=== PATIENT | male | born 1960 | race Caucasian/White ===

== ENCOUNTER 2018-01-21 15:53 | Outpatient (CLI) | payer BC ==
--- NOTE | 2018-01-21 19:00 | MRI ---
MRI LEFT ELBOW WITHOUT CONTRAST 01/21/18 HISTORY: Elbow pain for five months. Plays tennis. COMPARISON: None. FINDINGS: TENDONS: There is low grade thickening of both the common extensor and common flexor tendons without significa nt tearing of the common flexor tendon, although there is moderate grade interstitial tearing of the common extensor tendon. The biceps tendon and brachialis tendons are intact. MUSCLES: There is some low grade edema of the brachialis distal myotendinous junction suggesting a low grade s train. No bicipital radial bursitis. The triceps tendon is intact. LIGAMENTS: The lateral ulnar collateral ligament, ulnar collateral ligament, and annular ligament are all intact . CARTILAGE: Cartilage is intact. No cartilage defect. IMPRESSION: 1. Moderate partial tearing and tendinosis of the common extensor tendon. 2. Mild edema in the myotendinous junction of the brachial indicating a grade I strain. 3. Mild distal biceps tendinosis. POS: [facility]
== END 2018-01-21 15:54 | disposition home or self-care (01) ==
LOC: SCSMRI 15:53
PROVIDERS: ATTEND Chiropractor
DX: M25.521 Pain in right elbow (principal); M77.11 Lateral epicondylitis, right elbow; S56.511A Strain of other extensor muscle, fascia and tendon at forearm level, right arm, initial encounter; M75.21 Bicipital tendinitis, right shoulder